=== PATIENT | male | born 1970 | race Caucasian/White ===

== ENCOUNTER 2020-09-12 07:00 | Outpatient (CLI) | payer MEDICARE, OTHER | END 2020-09-12 23:59 | disposition home or self-care (01) | LOC: COV 07:00 | PROVIDERS: ATTEND Family Medicine | DX: M79.10 Myalgia, unspecified site (principal); Z20.828 Contact with and (suspected) exposure to other viral communicable diseases; R68.83 Chills (without fever); R09.81 Nasal congestion; R53.83 Other fatigue ==

== ENCOUNTER 2022-10-23 08:00 | Outpatient (CLI) | payer MEDICARE, OTHER | END 2022-10-23 08:01 | disposition home or self-care (01) | LOC: LAB.N 08:00 | PROVIDERS: ATTEND Registered Nurse | DX: Z53.9 Procedure and treatment not carried out, unspecified reason (principal) ==